=== PATIENT | female | born 1985 | race African-American/Black ===

== ENCOUNTER 2020-08-18 00:56 | Emergency (ER) | payer OTHER ==
[~2020-08-18] VITALS: Ht 157.5 cm; Wt 63.5 kg
[2020-08-18 01:03] VITALS: Ht 157.5 cm; Wt 63.5 kg
[2020-08-18 01:37] VITALS: BP 164/114
== END 2020-08-18 01:37 ==
LOC: ED 00:56
DX: Z02.89 Encounter for other administrative examinations (principal)
CPT/HCPCS: 99406